=== PATIENT | male | born 1990 | race Caucasian/White ===

== ENCOUNTER 2020-01-23 04:05 | Emergency (ER) | payer SELFPAY ==
[~2020-01-23] VITALS: Ht 165.1 cm; Wt 69.0 kg
[2020-01-23] MEDS ORDERED: SODIUM CHLORIDE 0.9% 1,000 ML IV ONE ×3 (04:38→16:15)
[2020-01-23] MEDS ORDERED: LORAZEPAM 2MG/ML CPJ IV STA (04:38)
[2020-01-23 05:07] LABS: BASOPHILS % 0.3 % (0.0-2.0); EOSINOPHILS % 0.1 % (0.0-5.0); HEMATOCRIT. 48.3 % (42.0-52.0); LYMPHOCYTES % 8.8 % (20.0-50.0); MEAN CORPUSCULAR HEMOGLOBIN 30.3 pg (28.0-32.0); MEAN CORPUSCULAR VOLUME 85.9 fL (80.0-94.0); MEAN PLATELET VOLUME 8.8 fl (7.4-10.4); MONOCYTES % 6.4 % (2.0-8.0); NEUTROPHILS % 84.4 % (40.0-76.0); PLATELET 311 x1000/uL (130-400); RED BLOOD CELL COUNT 5.63 mill/uL (4.7-6.1); RED CELL DISTRIBUTION WIDTH 13.5 % (11.6-14.6)
[2020-01-23 05:11] LABS: CHLORIDE 99 mEq/L (98-107)
[2020-01-23 05:15] LABS: ETHANOL BLOOD < 10 mg/dL
[2020-01-23 06:10] LABS: CLARITY URINE CLOUDY (CLEAR); COLOR URINE DARK YELLOW (YELLOW); KETONES URINE 2+ (NEGATIVE); LEUKOCYTE ESTERASE URINE TRACE (NEGATIVE); NITRITE URINE NEGATIVE (NEGATIVE); OCCULT BLOOD URINE 2+ (NEGATIVE); PH URINE 5.5 (4.5-8.0); PROTEIN URINE 2+ (NEGATIVE); SPECIFIC GRAVITY URINE 1.025 (1.005-1.030)
[2020-01-23 07:08] LABS: METHADONE URINE SCREEN NEGATIVE (NEGATIVE); OPIATES URINE SCREEN NEGATIVE (NEGATIVE)
[2020-01-23 07:09] LABS: *AMPHETAMINES SCREEN URINE PRESUMTIVE POSITIVE (NEGATIVE); *BARBITURATES SCREEN URINE NEGATIVE (NEGATIVE); *BENZODIAZEPINES SCREEN URINE NEGATIVE (NEGATIVE); *COCAINE SCREEN URINE NEGATIVE (NEGATIVE); CANNABINOID URINE SCREEN PRESUMTIVE POSITIVE (NEGATIVE); PHENCYCLIDINE URINE SCREEN NEGATIVE (NEGATIVE)
[2020-01-23] MEDS ORDERED: LORAZEPAM 2MG/ML CPJ IV ONE (07:45)
[2020-01-23] MEDS ORDERED: OLANZAPINE 10 MG/VIAL IM ONE (07:45)
[2020-01-23 16:40] LABS: CREATINE KINASE 1874 IU/L (39-308)
[2020-01-23 18:21] LABS: CHLORIDE 109 mEq/L (98-107)
[2020-01-23 18:29] LABS: BASOPHILS % 0.5 % (0.0-2.0); EOSINOPHILS % 2.3 % (0.0-5.0); HEMATOCRIT. 40.9 % (42.0-52.0); HEMOGLOBIN. 14.4 g/dL (14.0-18.0); LYMPHOCYTES % 32.8 % (20.0-50.0); MEAN CORPUSCULAR HEMOGLOBIN 30.6 pg (28.0-32.0); MEAN CORPUSCULAR VOLUME 87.2 fL (80.0-94.0); MEAN PLATELET VOLUME 8.8 fl (7.4-10.4); MONOCYTES % 10.1 % (2.0-8.0); NEUTROPHILS % 54.3 % (40.0-76.0); PLATELET 236 x1000/uL (130-400); RED BLOOD CELL COUNT 4.69 mill/uL (4.7-6.1); RED CELL DISTRIBUTION WIDTH 14.1 % (11.6-14.6)
[2020-01-23 18:40] LABS: CREATINE KINASE 1704 IU/L (39-308)
[2020-01-23 21:30] VITALS: BP 120/65
== END 2020-01-23 21:37 | disposition home or self-care (01) ==
LOC: ER 04:40
DX: F15.10 Other stimulant abuse, uncomplicated (principal); R41.82 Altered mental status, unspecified; F14.10 Cocaine abuse, uncomplicated; E11.9 Type 2 diabetes mellitus without complications; J45.909 Unspecified asthma, uncomplicated; Z87.828 Personal history of other (healed) physical injury and trauma
CPT/HCPCS: 36415; 70450; 80048; 80053; 80305; 80320; 81003; 82550; 85025; 93005; 96361; 96372; 96374; 96376; 99285; J2060; J3490; J7030; G0480

== ENCOUNTER 2020-01-23 22:29 | Emergency (ER) | payer SELFPAY ==
[~2020-01-23] VITALS: Ht 167.6 cm; Wt 66.0 kg
[2020-01-24 07:30] VITALS: BP 153/87
== END 2020-01-24 09:56 | disposition home or self-care (01) ==
LOC: ER 22:29
DX: M25.572 Pain in left ankle and joints of left foot (principal); R07.81 Pleurodynia; E11.9 Type 2 diabetes mellitus without complications; F15.10 Other stimulant abuse, uncomplicated; F14.10 Cocaine abuse, uncomplicated; Z87.828 Personal history of other (healed) physical injury and trauma; Y08.89XA Assault by other specified means, initial encounter; Y93.89 Activity, other specified; Y92.018 Other place in single-family (private) house as the place of occurrence of the external cause
CPT/HCPCS: 71101; 73610; 99284